=== PATIENT | male | born 1965 | race Caucasian/White ===

== ENCOUNTER 2023-09-19 10:23 | Emergency (ER) | payer OTHER ==
[~2023-09-19] VITALS: Ht 170.2 cm; Wt 81.0 kg
[2023-09-19 10:34] VITALS: BP 151/108; RESP 18; TEMP 98.1; O2SAT 99
[2023-09-19 10:39] VITALS: PULSE 92
[2023-09-19] MEDS ORDERED: IBUPROFEN 400MG TABLET PO NR (12:45)
== END 2023-09-19 12:30 | disposition left against medical advice (07) ==
LOC: ER 10:23
DX: M25.531 Pain in right wrist (principal); Z90.49 Acquired absence of other specified parts of digestive tract; Z88.1 Allergy status to other antibiotic agents; Z88.2 Allergy status to sulfonamides; V00.131A Fall from skateboard, initial encounter; Y93.89 Activity, other specified; Y92.89 Other specified places as the place of occurrence of the external cause; Y99.8 Other external cause status
CPT/HCPCS: 73110; 99283